=== PATIENT | male | born 1975 | race Two or more races ===

== ENCOUNTER 2022-11-10 04:35 | Day surgery (SDC) | payer OTHER ==
[2022-11-07 13:09] VITALS: BMI 16.5
[2022-11-10] MEDS ORDERED: PROPOFOL 40 ML ONE (13:33)
[2022-11-10] MEDS ORDERED: MIDAZOLAM HCL 2 MG/2 ML SINGLE DOSE VIAL ONE (13:34)
[2022-11-10] MEDS ORDERED: SUCCINYLCHOLINE CHLORIDE 200 MG/10 ML SYRINGE ONE (13:34)
[2022-11-10] MEDS ORDERED: LIDOCAINE HCL/PF 2% SDV 5ML VIAL ONE (13:35)
[2022-11-10] MEDS ORDERED: LIDOCAINE HCL 2% JELLY 10 ML CARTRIDGE ONE (13:35)
[2022-11-10] MEDS ORDERED: ceFAZolin SODIUM 1 GM VIAL IVPB ONE (13:59)
[2022-11-10] MEDS ORDERED: DEXAMETHASONE SOD PHOSPHATE 4 MG/1 ML VIAL ONE (14:01)
[2022-11-10] MEDS ORDERED: ceFAZolin SODIUM 1 GM VIAL ONE (14:01)
[2022-11-10] MEDS ORDERED: ONDANSETRON 4 MG/2 ML VIAL ONE (14:01)
[2022-11-10] MEDS ORDERED: BUPIVACAINE HCL/PF 0.25% (2.5MG/ML) 10 ML VIAL IJ ONE (14:06)
[2022-11-10] MEDS ORDERED: BUPIVACAINE HCL/PF 0.5% (5MG/ML) 10 ML VIAL ONE (14:27)
[2022-11-10] MEDS ORDERED: BUPIVACAINE HCL/PF 0.5% (5MG/ML) 10 ML VIAL IJ ONE (14:35)
[2022-11-10] MEDS ORDERED: PROMETHAZINE HCL 25 MG/1 ML VIAL IVPUSH PRN (14:55)
[2022-11-10] MEDS ORDERED: ACETAMINOPHEN 325 MG TABLET (FP) PO PRN (14:55)
[2022-11-10] MEDS ORDERED: oxyCODONE HCL 5 MG TABLET PO PRN ×2 (14:55)
[2022-11-10] MEDS ORDERED: ONDANSETRON 4 MG/2 ML VIAL IVPUSH PRN (14:55)
[2022-11-10 15:58] VITALS: RESP 20
[2022-11-10 16:07] VITALS: TEMP 98.8
[2022-11-10 17:39] VITALS: BP 108/71; PULSE 69
== END 2022-11-10 17:05 | disposition home or self-care (01) ==
LOC: JASU-SURG 04:35
PROVIDERS: ATTEND Urology
PROC: 0VBQ0ZZ Excision of Bilateral Vas Deferens, Open Approach (ICD-10-PCS; principal; 2022-11-10 12:30)
DX: Z30.2 Encounter for sterilization (principal)
CPT/HCPCS: 88302-TC; 94760